=== PATIENT | male | born 1985 | race Two or more races ===

== ENCOUNTER 2017-09-13 08:08 | Emergency (ER) | payer SELFPAY ==
[2017-09-13] MEDS ORDERED: DIPH/PERTUSS(ACELL)/TETANUS VAC/PF 0.5 ML SYR (>=10YO) IM ONE (08:40)
[2017-09-13] MEDS ORDERED: AMOXICILLIN TR/POT CLAVULANATE 500-125 MG TAB PO ONE (08:40)
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
--- NOTE | 2017-09-13 09:26 | RADIOLOGY REPORT (SQ) ---
EXAM DESCRIPTION: HAND BILATERAL 3 VIEWS COMPLETED DATE/TIME: 09/13/2017 8:41 am REASON FOR STUDY: LT HAND INJURY, RT HAND HARDWARE COMPARISON: None. EXAM PARAMETERS: NUMBER OF VIEWS: Three views. TECHNIQUE: AP, lateral and oblique radiographic images acquired of the right and left hand. LIMITATIONS: None. FINDINGS: RIGHT MINERALIZATION: Normal. BONES: No acute fracture or dislocation. Old healed fracture with bony overgrowth, dorsal base right 4th finger distal phalanx best shown on lateral view. Old healed fracture distal right 5th metacarp al. JOINTS: No effusions. SOFT TISSUES: No focal soft tissue acute swelling. There is hardware fusion across the 3rd carpometa carpal joint. Orthopedic tack at the base of the 5th metacarpal. OTHER: No other significant finding. LEFT MINERALIZATION: Normal. BONES: No acute fracture or dislocation. No worrisome bone lesions. JOINTS: No effusions. SOFT TISSUES: No soft tissue swelling. No foreign body. OTHER: No other significant finding. IMPRESSION: No acute fracture or malalignment, left hand. Old post fusion, right 3rd carpometacarpal joint. No fracture of the hardware or lucency around the screws worrisome for loosening TECHNICAL DOCUMENTATION: JOB ID: [id number]- All Rights Reserved Reading location - IP/workstation name: [email or web address]
[2017-09-13 10:02] VITALS: BP 125/76
== END 2017-09-13 10:02 | disposition home or self-care (01) ==
LOC: ER 08:08
DX: S69.92XA Unspecified injury of left wrist, hand and finger(s), initial encounter (principal); S61.259A Open bite of unspecified finger without damage to nail, initial encounter; W50.3XXA Accidental bite by another person, initial encounter; Z23 Encounter for immunization
CPT/HCPCS: 90715; 99283

== ENCOUNTER 2020-03-02 21:04 | Emergency (ER) | payer SELFPAY ==
[2020-03-02 21:12] VITALS: BP 139/69
[2020-03-02] MEDS ORDERED: DIPH/PERTUSS(ACELL)/TETANUS VAC/PF 0.5 ML SYR (>=10YO) IM ONE (21:20)
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
--- NOTE | 2020-03-02 22:05 | RADIOLOGY REPORT (SQ) ---
EXAM DESCRIPTION: XR NASAL BONES COMPLETED DATE/TME: 03/02/2020 21:19 CLINICAL HISTORY: 34 years, Male, Attic door fell on nose face COMPARISON: None. NUMBER OF VIEWS: 3 TECHNIQUE: 3 views of the nasal bones LIMITATIONS: None. FINDINGS: No radiographic evidence for acute nasal bone fracture. The maxillary spine is intact IMPRESSION: Negative exam copyright 2011 [employer]- All Rights Reserved
[2020-03-02] MEDS ORDERED: LIDOCAINE 1% INJ-PF (10 MG/ML) 30 ML SDV INJ ONE (23:00)
--- NOTE | 2020-03-02 23:02 | ER Document Report ---
ED General - General Chief Complaint: Head Injury Stated Complaint: HEAD INJURY/FOREHEAD LACERATION Time Seen by Provider: 03/02/20 21:19 Mode of Arrival: Ambulatory TRAVEL OUTSIDE OF THE [place] IN LAST 30 DAYS: No - HPI Notes: Patient is a very pleasant 34-year-old male who presents the emergency department for evaluation. He was helping a friend, and attic door came down and hit him in the head. It in his forehead then in his nose. He states he felt slightly dazed, but did not lose consciousness. He denies neck or back pain. He is unsure when his last tetanus shot was. He denies any difficulty breathing. He is seeing, speaking, swallowing without problem. - Related Data Allergies/Adverse Reactions: No Known Allergies Allergy (Verified 09/13/17 08:15) Home Medications: None Past Medical History - General Information source: Patient - Social History Smoking Status: Current Some Day Smoker Frequency of alcohol use: Rare - Weekends Drug Abuse: None Family History: Reviewed & Not Pertinent, Hypertension Renal/ Medical History: Denies: Hx Peritoneal Dialysis Psychiatric Medical History: Reports: Hx Bipolar Disorder Past Surgical History: Reports: Hx Orthopedic Surgery - R arm with hardware Review of Systems - Review of Systems Constitutional: No symptoms reported EENT: No symptoms reported Cardiovascular: No symptoms reported Respiratory: No symptoms reported Gastrointestinal: No symptoms reported Genitourinary: No symptoms reported Musculoskeletal: No symptoms reported Skin: See HPI Neurological/Psychological: See HPI -: Yes All other systems reviewed and negative Physical Exam - Vital signs Vitals: Temp Pulse Resp BP Pulse Ox 98.1 F 77 19 139/69 H 98 03/02/20 21:11 03/02/20 21:11 03/02/20 21:11 03/02/20 21:11 03/02/20 21:11 - Notes Notes: Vital signs reviewed, please refer to chart. Head is normocephalic, atraumatic. 2.5 cm linear laceration, just inferior to the hairline. Pupils equal round, reactive to light. Nares are patent without septal hematoma. He does have a 5 mm abrasion noted over the bridge of the nose. No facial bone tenderness, no orbital stepoff. Oral mucosa is moist. Uvula is midline. Examination of the spine yields no midline tenderness or step-off. No paraspinal musculature tenderness is appreciated. Heart is regular rate and rhythm. Lungs are clear to auscultation bilaterally. Chest wall excursion is equal, chest is nontender. Abdomen is soft, nontender, normoactive bowel sounds throughout. Extremities without cyanosis, clubbing. Posterior calves are nontender. Peripheral pulses are equal. Skin is warm and dry. Patient is awake, alert, oriented x3. Cranial nerves II - XII are grossly intact without focal neurological deficits. Strength is plus 5 out of 5 bilateral upper and lower extremities. Sensation is intact. Reflexes symmetrical. Intact [id number], rapid alternating movements, [id number]. Course - Re-evaluation Re-evalutation: 03/02/20 23:03 Patient presents to the emergency department for evaluation. He sustained a blow to the head and the face. He has a normal neurological exam. He is [id number] without any major medical issues, a normal neurological exam, I do not have a high index of suspicion for intracranial injury. His nasal x-ray is unremarkable. He has no nasal septal hematoma. Attention will be turned to the laceration, it will be cleansed and closed. His tetanus is already updated. 03/02/20 23:51 Wound was cleansed and closed, please see separate procedure note. Patient tolerated this well. We will send him home with instructions on wound care, close follow-up. He is to return to the ED with worsening. - Vital Signs Vital signs: Temp Pulse Resp BP Pulse Ox 98.1 F 77 19 139/69 H 98 03/02/20 21:11 03/02/20 21:11 03/02/20 21:11 03/02/20 21:11 03/02/20 21:11 Procedures - Laceration/Wound Repair Face Wound length (cm): 2.5 Wound's Depth, Shape: Superficial, Linear Laceration pre-procedure: Sterile PPE donned Anesthetic type: 1% Lidocaine Volume Anesthetic (mLs): 4 Wound explored: Clean Wound Repaired With: Sutures Suture Size/Type: 5:0, Prolene Number of Sutures: 7 Layer Closure?: No Post-procedure NV exam normal: Yes Complications: No Adult Head Front/Back picture: 1 - 2.5 cm laceration Discharge - Discharge Clinical Impression: Facial laceration Qualifiers: Encounter type: initial encounter Qualified Code(s): S01.81XA - Laceration without foreign body of other part of head, initial encounter Contusion of nose Qualifiers: Encounter type: initial encounter Qualified Code(s): S00.33XA - Contusion of nose, initial encounter Nasal abrasion Qualifiers: Encounter type: initial encounter Qualified Code(s): S00.31XA - Abrasion of nose, initial encounter Head injury due to trauma Qualifiers: Encounter type: initial encounter Qualified Code(s): S09.90XA - Unspecified injury of head, initial encounter Condition: Stable Disposition: HOME, SELF-CARE Instructions: Antibiotic Ointment Protection ([facility]), Laceration Care ([facility]), Tetanus Immunization Given ([facility]), Head Injury Precautions ([facility]) Additional Instructions: Keep wound clean with soap and water. Do not submerge wound as discussed. Have sutures removed in 7 days. If you develop increased pain, fevers, drainage, vomiting, difficulty speaking or swallowing, or any other new or concerning symptoms, please return immediately to the emergency department for evaluation. Referrals: [facility] [NO LOCAL MD] - Follow up as needed
== END 2020-03-03 00:05 | disposition home or self-care (01) ==
LOC: ER 21:04
DX: S01.81XA Laceration without foreign body of other part of head, initial encounter (principal); W20.8XXA Other cause of strike by thrown, projected or falling object, initial encounter; Y93.89 Activity, other specified; F17.200 Nicotine dependence, unspecified, uncomplicated; Z23 Encounter for immunization
CPT/HCPCS: 99283; 90471; 70160; 90715; 12011; J3490

== ENCOUNTER 2020-05-27 11:53 | Emergency (ER) | payer SELFPAY ==
[2020-05-27] MEDS ORDERED: KETOROLAC TROMETHAMINE 60 MG/2 ML SDV IM ONE (13:28)
--- NOTE | 2020-05-27 13:33 | ER Document Report ---
ED Extremity Problem, Lower - General Chief Complaint: Knee Pain Stated Complaint: KNEE PAIN Time Seen by Provider: 05/27/20 13:22 Mode of Arrival: Ambulatory Information source: Patient, Relative Notes: Patient is a 34-year-old male comes emergency room complaining of right knee pain. Patient states this happens about every he is cold outside I can be left in your right inguinal sinus or right. He states it started on after he got done with 1 getting out of the truck he noticed a little crack in the right knee. He has had a difficult time ambulating. Apparently has been get ting some muscle relaxers unknown as to the name. Minimally helped but not totally. Patient is also using a crutch to ambulate with. He denies any other known traumatic events. TRAVEL OUTSIDE OF THE [place] IN LAST 30 DAYS: No - HPI Patient complains to provider of: Pain, Swelling Location: Knee Occurred: Other - 4 days ago Where: Other - Unknown Onset/Duration: Sudden Quality of pain: Achy, Fullness, Throbbing Severity: Moderate Pain Level: 3 Recent injury: No Associated symptoms: [place] a crack, Painful ambulation Exacerbated by: Movement, Walking Relieved by: Nothing - Related Data Allergies/Adverse Reactions: No Known Allergies Allergy (Verified 05/27/20 13:21) Past Medical History - General Information source: Patient - Social History Smoking Status: Current Every Day Smoker Cigarette use (# per day): Yes - Half pack Chew tobacco use (# tins/day): No Frequency of alcohol use: None Drug Abuse: None Lives with: Family Family History: Reviewed & Not Pertinent, Hypertension Renal/ Medical History: Denies: Hx Peritoneal Dialysis Psychiatric Medical History: Reports: Hx Bipolar Disorder Past Surgical History: Reports: Hx Orthopedic Surgery - R arm with hardware Review of Systems - Review of Systems Constitutional: No symptoms reported EENT: No symptoms reported Cardiovascular: No symptoms reported Respiratory: No symptoms reported Gastrointestinal: No symptoms reported Genitourinary: No symptoms reported Male Genitourinary: No symptoms reported Musculoskeletal: See HPI, Joint pain, Joint swelling Skin: No symptoms reported Hematologic/Lymphatic: No symptoms reported Neurological/Psychological: No symptoms reported -: Yes All other systems reviewed and negative Physical Exam - Vital signs Vitals: Temp Pulse Resp BP Pulse Ox 98.1 F 76 16 132/64 H 100 05/27/20 12:13 05/27/20 12:13 05/27/20 12:13 05/27/20 12:13 05/27/20 12:13 Interpretation: Hypertensive - Notes Notes: PHYSICAL EXAMINATION: GENERAL: Patient is a well-nourished well-developed 24-year-old male no apparent distress on examination today. He does appear somewhat uncomfortable though. HEAD: Atraumatic, normocephalic. EYES: Pupils equal round and reactive to light, extraocular movements intact, sclera anicteric, conjunctiva are normal. LUNGS: Breath sounds clear to auscultation bilaterally and equal. No wheezes rales or rhonchi. HEART: Regular rate and rhythm without murmurs Musculoskeletal: Examination patient's area concern is his right knee. Examination shows of right knee shows it has a mild amount of swelling appears subpatellar possible effusion noted. There is mild laxity in the medial aspect of the right knee to movement. Patient has mild increased discomfort and pain with passive range of motion. There is no crepitus felt on passive range of motion. Vascular exam shows good popliteal pulse patient has decreased flexion extension at the joint space secondary to pain discomfort. Temperature appears to be normal between right and left knees. No sign of infection. NEUROLOGICAL: Normal speech, normal gait. Normal sensory, motor exams PSYCH: Normal mood, normal affect. SKIN: Warm, Dry, normal turgor, no rashes or lesions noted. Course - Re-evaluation Re-evalutation: 05/27/20 16:04 Patient's x-rays show a moderate joint effusion without evidence of acute bony abnormality of the right knee. At this point given patient's history of getting out of the truck and past history of it occurring goes along with a internal derangement possibly meniscus medial collateral ligament of the right knee. We will place him in a knee immobilizer I will place him on a little steroid taper to see if it helps with the effusion possibly a tendinitis on top of that and refer him to orthopedist. - Vital Signs Vital signs: Temp Pulse Resp BP Pulse Ox 98.1 F 76 16 132/64 H 100 05/27/20 12:13 05/27/20 12:13 05/27/20 12:13 05/27/20 12:13 05/27/20 12:13 - Laboratory Results Critical Laboratory Results Reviewed: No Critical Results - Radiology Results Critical Radiology Results Reviewed: Yes Attending or Supervising Physician who Reviewed Radiology: JESE ELDER JR - Knee joint effusion Procedures - Immobilization Right Medial Knee Time completed: 16:05 Pre-Proc Neuro Vasc Exam: Normal Immobilizer type: Knee immobilizer Performed by: PCT Post-Proc Neuro Vasc Exam: Normal Alignment checked and good: Yes Discharge - Discharge Clinical Impression: Effusion, right knee, Internal derangement of right knee Condition: Stable Disposition: HOME, SELF-CARE Instructions: Use of Crutches ([facility]), Ice & Elevation ([facility]), Suspected Internal Knee Injury ([facility]), Knee Immobilizing Splint ([facility]) Additional Instructions: Your x-ray comes back and shows that you have some fluid under your knee. This is most likely the result of either a meniscus problem or a tendon problem or could be a bursitis kind of presentation anyway we can place you on a steroid taper to see if helps with the inflammation and pain. The knee immobilizer help stabilize the knee and crutches nonweightbearing as much as possible for the next 3 to 4 days. You will need to see an orthopedic doctor I am going to give you the name of the orthopedist semiconductor packages tester that you can contact his office to see if he can accommodate you. You can ice down the knee 3-4 times a day you can do this by opening up the knee immobilizer placing a light towel around the knee and an ice pack on top and below the knee. Leave it there for approximately 30 to 40 minutes. I would not use any heat on it at this time. You can give it another 48 hours and then you can start using moist heat. Should you have any concerns or problems you can return to ER for reevaluation. Prescriptions: Methylprednisolone [Medrol Dosepack (4 mg/Tab) 21 Tab/Dosepak] 4 mg PO ASDIR PRN 6 Days #21 tab.ds.pk PRN Reason: Forms: Elevated Blood Pressure, Smoking Cessation Education, Return to Work Referrals: LIANA DUNCAN, [ACTIVE STAFF] - Follow up as needed
--- NOTE | 2020-05-27 15:26 | RADIOLOGY REPORT (SQ) ---
EXAM DESCRIPTION: KNEE RIGHT 4 VIEWS IMAGES COMPLETED DATE/TIME: 05/27/2020 3:16 pm REASON FOR STUDY: pain COMPARISON: None. NUMBER OF VIEWS: Four views. TECHNIQUE: AP, lateral, and both oblique radiographic images acquired of the right knee. LIMITATIONS: None. FINDINGS: MINERALIZATION: Normal. BONES: No acute fracture or dislocation. No worrisome bone lesions. JOINT: Moderate joint effusion SOFT TISSUES: No soft tissue swelling. No radio-opaque foreign body. OTHER: No other significant finding. IMPRESSION: Moderate joint effusion without evidence of acute bony abnormality of the right knee. TECHNICAL DOCUMENTATION: JOB ID: [id number] 2010 [employer]- All Rights Reserved Reading location - IP/workstation name: [email or web address]
[2020-05-27 16:45] VITALS: BP 124/77
== END 2020-05-27 16:42 | disposition home or self-care (01) ==
LOC: ER 11:53
DX: M23.91 Unspecified internal derangement of right knee (principal); M25.461 Effusion, right knee; M25.561 Pain in right knee; F17.210 Nicotine dependence, cigarettes, uncomplicated
CPT/HCPCS: 99284; 96372; 73564; J1885